=== PATIENT | female | born 1935 | race Two or more races ===

== ENCOUNTER 2019-05-24 11:43 | Outpatient (CLI) | payer OTHER | END 2019-05-24 11:47 | disposition home or self-care (01) | LOC: LAB 11:43 | DX: R10.84 Generalized abdominal pain (principal); I10 Essential (primary) hypertension; R53.1 Weakness ==

== ENCOUNTER 2019-05-24 13:10 | Outpatient (CLI) | payer OTHER | END 2019-05-24 13:16 | disposition home or self-care (01) | LOC: SONOGRAMA 13:10 | DX: E03.8 Other specified hypothyroidism (principal) ==

== ENCOUNTER 2019-05-25 12:20 | Outpatient (CLI) | payer OTHER | END 2019-05-27 10:49 | disposition home or self-care (01) | LOC: LAB 12:20 | DX: R10.84 Generalized abdominal pain (principal); I10 Essential (primary) hypertension; R53.1 Weakness ==